=== PATIENT | male | born 1985 | race African-American/Black ===

== ENCOUNTER 2018-07-03 17:11 | Emergency (ER) | payer OTHER ==
[~2018-07-03] VITALS: Ht 182.9 cm; Wt 90.7 kg
[~2018-07-03 17:11] MED LIST: ACETAMINOPHEN-1 EAC1 PO; BACTRIM DS TAB1 EACH PO; CLEOCIN HCL150 MG PO; FOLIC ACID1 MG PO; HIBICLENS120 ML TP; IBUPROFEN 600600 M1 PO; KEPPRA 500 MG500 M1 PO; KEPPRA XR750 MG PO; KEPPRA750 MG PO; LAMICTAL100 MG PO; TRAMADOL 50 MG50 MG PO
[2018-07-03] MEDS ORDERED: LAMICTAL200 MG PO (17:34)
[2018-07-03] MEDS ORDERED: KEPPRA750 MG PO (17:34)
[2018-07-03 17:41] VITALS: BP 124/77
== END 2018-07-03 17:41 | disposition home or self-care (01) ==
LOC: ER 17:11
DX: Z76.0 Encounter for issue of repeat prescription (principal); G40.909 Epilepsy, unspecified, not intractable, without status epilepticus

== ENCOUNTER 2019-03-29 21:38 | Emergency (ER) | payer OTHER ==
[~2019-03-29] VITALS: Ht 182.9 cm; Wt 93.4 kg
[~2019-03-29 21:38] MED LIST changes: +LAMICTAL200 MG PO
[2019-03-29] MEDS ORDERED: BACTRIM DS TAB1 EAC1 PO (22:26)
[2019-03-29] MEDS ORDERED: NAPROSYN500 MG PO (22:26)
[2019-03-29 22:49] VITALS: BP 123/74
--- NOTE | 2019-03-31 08:14 | EKG ---
[address] [place] [address] ELECTROCARDIOGRAM REPORT Name: JAMESON BENITEZ [id number] ������������������ Admission: 03/29/19 ������������������ Attend Phys: Discharge: 03/29/19 ������������������ Date of : 81 Report #: [id number] ����������������������������������������������������������������� [id number] THIS REPORT FOR: //name// [facility] ED Test Date: 2019-03-29 Test Time: 21:59:52 Pat Name: JAMESON BENITEZ Department: Room: Gender: M Lead Data Entry Operator: PRINCE : 1985 Requested By: Roby Pavon Order Number: [id number] MD: Abdoulaye Kraft Measurements Intervals [place] Rate: 72 P: 39 WV: 173 QRS: -20 QRSD: 97 T: -10 QT: 390 QTc: 427 Interpretive Statements Sinus rhythm Borderline left axis deviation Borderline T abnormalities, inferior leads Compared to ECG 07/03/2016 20:48:29 Electronically Signed On 03-31-2019 8:14:39 CDT by Abdoulaye Kraft [email or web address] ��������������������������������������������� <ELECTRONICALLY SIGNED> ���������������������������������������� By: Abdoulaye Kraft MD ��������������������������������������������� 03/31/19 08 58 58 Abdoulaye Kraft MD /KIRK
== END 2019-03-29 22:50 | disposition home or self-care (01) ==
LOC: ER 21:38
DX: M54.9 Dorsalgia, unspecified (principal); R21 Rash and other nonspecific skin eruption

== ENCOUNTER 2019-04-12 21:35 | Emergency (ER) | payer OTHER ==
[~2019-04-12] VITALS: Ht 182.9 cm; Wt 93.0 kg
[~2019-04-12 21:35] MED LIST changes: +BACTRIM DS TAB1 EAC1 PO; +NAPROSYN500 MG PO
[2019-04-12 21:37] VITALS: BP 129/84
[2019-04-12] MEDS ORDERED: KEPPRA750 MG PO (22:03)
[2019-04-12] MEDS ORDERED: LAMICTAL200 MG PO (22:03)
== END 2019-04-12 22:08 | disposition home or self-care (01) ==
LOC: ER 21:35
DX: G40.909 Epilepsy, unspecified, not intractable, without status epilepticus (principal)

== ENCOUNTER 2020-09-09 12:48 | Inpatient (IN) | payer OTHER ==
[~2020-09-09] VITALS: Ht 182.9 cm; Wt 95.3 kg
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
[2020-09-09 12:55] VITALS: BP 115/64
[2020-09-09 13:51] LABS: ABSOLUTE NEUTROPHILS 4.3 thou/uL (1.4-8.2); BASOPHILS 0.7 % (0.0-2.0); EOSINOPHILS 0.6 % (0.0-3.0); HEMATOCRIT 48.6 % (42.0-52.0); HEMOGLOBIN 15.7 gm/dL (14.0-18.0); LYMPHOCYTES 30.9 % (24.0-44.0); MCH 30.1 pg (26.0-34.0); MCHC 32.4 g/dL (28.0-37.0); MONOCYTES 7.6 % (1.0-8.0); PLATELET COUNT 318 thou/uL (150-400); POLYS 60.2 % (36.0-66.0); RBC 5.23 mil/uL (4.50-6.00); RDW 12.9 % (10.5-14.5); WBC 7.2 thou/uL (4.0-11.0)
[2020-09-09 13:52] LABS: URINE BILIRUBIN NEGATIVE (Negative); URINE BLOOD 1+ (Negative); URINE CLARITY CLEAR; URINE COLOR YELLOW; URINE GLUCOSE-RANDOM* NEGATIVE (Negative); URINE KETONES NEGATIVE (Negative); URINE LEUKOCYTES-REFLEX NEGATIVE (Negative); URINE PROTEIN (DIPSTICK) NEGATIVE (Negative); URINE UROBILINOGEN 0.2 E.U./dl (0.2-1.0)
[2020-09-09 13:54] LABS: URINE NITRITE-REFLEX POSITIVE (Negative)
[2020-09-09 14:02] LABS: BACTERIA-REFLEX 1-9 Few /HPF (None Seen); CASTS None Seen /LPF (None Seen); CRYSTALS None Seen /LPF (None Seen); SQUAMOUS None Seen /LPF (0-3); URINE RBC 0-2 Rare /HPF (0-2); URINE WBC-REFLEX None Seen /HPF (0-5)
[2020-09-09 14:05] LABS: ANION GAP 9 mmol/L (7-16); BUN 11 mg/dL (7-18); CALCIUM 9.7 mg/dL (8.5-10.1); CHLORIDE 101 mmol/L (98-107); CO2 28 mmol/L (21-32); GLUCOSE 100 mg/dL (74-106); POTASSIUM 3.7 mmol/L (3.5-5.1); SODIUM 138 mmol/L (136-145)
[2020-09-09 14:08] LABS: AMP/METHAMP Negative (Negative); BARBITURATES Negative (Negative); BENZODIAZEPINES Negative (Negative); COCAINE Negative (Negative); METHADONE Negative (Negative); OPIATES Negative (Negative); PCP Negative (Negative)
[2020-09-09 14:09] LABS: ALBUMIN 4.5 g/dL (3.4-5.0); LIPASE 147 U/L (73-393); SGOT 28 U/L (15-37); SGPT 38 U/L (30-65); TOTAL BILIRUBIN 0.8 mg/dL (0.2-1.0); TOTAL PROTEIN 8.1 g/dL (6.4-8.2); TROPONIN-I <0.06 ng/mL (<0.06)
[2020-09-09 18:14] VITALS: BP 152/66
[2020-09-09 19:40] VITALS: BP 136/80
[2020-09-09 20:08] VITALS: BP 134/78
[2020-09-10 01:30] VITALS: BP 132/78
[2020-09-10] MEDS ORDERED: KEPPRA750 MG PO (01:31)
[2020-09-10 04:50] VITALS: BP 127/66
[2020-09-10 07:55] VITALS: BP 135/62
--- NOTE | 2020-09-10 08:39 | NUR ---
TRANSFER FROM ED; AOX4 WITH HISTORY OF SEIZURES; ON SEIZURE PRECAUTIONS; C/O OF WEAKNESS AND C/O OF LOSS OF BALANCE RECENTLY; SBA TO TOILET; SR/1AVB ON THE MONITOR WITH HR 70-90s; PLAN IS FOR PATIENT TO SEE CONSULTS AND REMAIN ON UNIT FOR OBSERVATION; WILL CONTINUE TO MONITOR.
[2020-09-10] MEDS ORDERED: KEFLEX500 M1 PO (12:35)
--- NOTE | 2020-09-10 13:51 | NUR ---
RECEIVED PT'S CARE AROUND 0730; PT. RESTING WITH EYES CLOSED; EQUAL CHEST RISING; SR ON THE MONITOR; DURING AM ASSESSMENT PT. AOX4; C/O ACHING OVER BODY; PRN MEDICATION GIVEN WITH AM MEDICATIONS; HOME MEDICATIONS CLARIFY WITH PT., MOTHER AND GIRLFRIEND AT THE BED SIDE; GONE FOR MRI EARLY ON THE MORNING; EEG PERFORMED; NO SEIZURE EVENTS DURING THE MORNING; D/C ORDERS ON PLACD; ASSESSMENT CHARGED; FOLLOWING POC; WILL WORK ON D/C ORDERS;
[2020-09-10 13:54] VITALS: BP 135/62
[2020-09-12 19:06] LABS: LEVETIRACETAM (KEPPRA) 14.5 ug/mL (10.0-40.0)
[2020-09-13 19:06] LABS: LAMOTRIGINE 4.7 ug/mL (2.0-20.0)
--- NOTE | 2020-09-20 07:53 | EKG ---
[address] [address] ELECTROCARDIOGRAM [facility] [id number] Admission: 09/09/20 Attend Phys: Pj Jones MD Discharge: 09/10/20 Date of : 81 Report #: [id number] [facility] ED Test Date: 2020-09-09 Test Time: 13:42:07 Pat Name: JAMESON BENITEZ Department: Room: Gender: M Manager Document Control: michelle : 1985 Requested By: Ronna Arenas Order Number: [id number] MD: Abdoulaye Kraft Measurements Intervals [place] Rate: 67 P: 37 ND: 163 QRS: 86 QRSD: 98 T: 14 QT: 399 QTc: 422 Interpretive Statements Sinus rhythm Compared to ECG 03/29/2019 21:59:52 T-wave abnormality no longer present Electronically Signed On 09-09-2020 14:31:16 BUSINESS OBJECTS DEVELOPER by Abdoulaye Kraft [email or web address] <ELECTRONICALLY SIGNED> By: Abdoulaye Kraft MD 09/09/20 1431 1342 134 Abdoulaye Kraft MD /KIRK
== END 2020-09-10 14:59 | disposition home or self-care (01) | DRG 71 ==
LOC: ER 12:48 → EROBS 15:31 → 2N 15:31
PROVIDERS: Internal Medicine; Physician Assistant; ADMIT Hospitalist; ATTEND Hospitalist
DX: G93.40 Encephalopathy, unspecified (principal); G40.89 Other seizures; N39.0 Urinary tract infection, site not specified; R27.0 Ataxia, unspecified; M48.00 Spinal stenosis, site unspecified; Z79.899 Other long term (current) drug therapy
CPT/HCPCS: 10081

== ENCOUNTER 2021-08-24 13:07 | Emergency (ER) | payer OTHER ==
[~2021-08-24] VITALS: Ht 182.9 cm; Wt 93.9 kg
[~2021-08-24 13:07] MED LIST changes: +KEFLEX500 M1 PO
[2021-08-24 14:01] LABS: ABSOLUTE NEUTROPHILS 4.3 thou/uL (1.4-8.2); EOSINOPHILS 0.6 % (0.0-3.0); HEMATOCRIT 44.1 % (42.0-52.0); HEMOGLOBIN 14.8 gm/dL (14.0-18.0); LYMPHOCYTES 25.8 % (24.0-44.0); MCH 30.1 pg (26.0-34.0); MCHC 33.7 g/dL (28.0-37.0); MCV 89.3 fL (80.0-100.0); PLATELET COUNT 330 thou/uL (150-400); POLYS 65.6 % (36.0-66.0); RBC 4.93 mil/uL (4.50-6.00); RDW 12.5 % (10.5-14.5); WBC 6.6 thou/uL (4.0-11.0)
[2021-08-24 14:11] LABS: CREATININE 0.9 mg/dL (0.7-1.3); POTASSIUM 3.6 mmol/L (3.5-5.1)
[2021-08-24 14:17] LABS: ALBUMIN 3.9 g/dL (3.4-5.0); TOTAL BILIRUBIN 0.4 mg/dL (0.2-1.0); TOTAL PROTEIN 7.5 g/dL (6.4-8.2)
[2021-08-24 14:25] LABS: URINE BILIRUBIN NEGATIVE (Negative); URINE BLOOD 1+ (Negative); URINE CLARITY CLEAR; URINE COLOR YELLOW; URINE GLUCOSE-RANDOM* NEGATIVE (Negative); URINE KETONES NEGATIVE (Negative); URINE LEUKOCYTES-REFLEX NEGATIVE (Negative); URINE NITRITE-REFLEX NEGATIVE (Negative); URINE PROTEIN (DIPSTICK) NEGATIVE (Negative); URINE UROBILINOGEN 0.2 E.U./dl (0.2-1.0)
[2021-08-24 15:09] LABS: CASTS None Seen /LPF (None Seen); SQUAMOUS None Seen /LPF (0-3); URINE RBC 1-2 Rare /HPF (NONE SEEN); URINE WBC-REFLEX None Seen /HPF (0-5)
[2021-08-24 15:10] LABS: BACTERIA-REFLEX 1-9 Few /HPF (None Seen); CRYSTALS None Seen /LPF (None Seen)
[2021-08-24 15:42] VITALS: BP 132/81
== END 2021-08-24 16:06 | disposition home or self-care (01) ==
LOC: ER 13:07
PROVIDERS: Physician Assistant
DX: K62.5 Hemorrhage of anus and rectum (principal); R31.29 Other microscopic hematuria; L72.0 Epidermal cyst; G40.909 Epilepsy, unspecified, not intractable, without status epilepticus